=== PATIENT | female | born 1930 | race Caucasian/White ===

== ENCOUNTER 2018-08-03 00:09 | Inpatient (IN) | payer MEDICARE, BC ==
[2018-08-03] MEDS ORDERED: Ondansetron INJ* 2 MG/ML VIAL IV ONE (00:26)
--- NOTE | 2018-08-03 00:33 | ED ---
Shortness of Breath - HPI Summary HPI Summary: This patient is a 87 year old female brought in by ambulance to [facility] accompanied by family with a chief complaint of SOB since 1800 today. Patient states that the SOB and difficulty breathing started at 1800 today, which was followed by abd discomfort and vomiting. The pain is rated 5/10 in severity. Symptoms aggravated by nothing. Symptoms alleviated by nothing. Patient denies any recent cough or congestion. Patient has a hx of uterine cancer, which has been untreated as patient declines surgery. EMS states that patient did not do well with exertion, barely being able to move from the couch. Patient expresses a desire not to be intubated. - History of Current Complaint Chief Complaint: EDShortnessOfBreath Hx Obtained From: Patient, EMS Onset/Duration: Sudden Onset, Still Present Current Severity: Moderate Dyspnea At: Exertion Aggrevating Factors: Nothing Alleviating Factors: Nothing Associated Signs & Symptoms: Negative - cough, congestion - Allergy/Home Medications Allergies/Adverse Reactions: Allergies Allergy/AdvReac Type Severity Reaction Status Date / Time Penicillins Allergy Intermediate Rash Verified 08/03/18 02:39 Sulfa (Sulfonamide Allergy Intermediate Hives Verified 08/03/18 02:39 Antibiotics) PMH/Surg Hx/FS Hx/Imm Hx Previously Healthy: No Endocrine/Hematology History: Reports: Hx Diabetes Cardiovascular History: Reports: Hx Hypertension - meds in use History: Denies: Hx Dialysis, Hx Renal Disease Opthamlomology History: Denies: Hx Legally Blind EENT History: Denies: Hx Deafness Infectious Disease History: Unable to Obtain/Confirm Infectious Disease History: Denies: Traveled Outside the [place] in Last 30 Days - Family History Known Family History: Negative: Cardiac Disease, Hypertension, Diabetes - Social History Lives: With Family Alcohol Use: None Hx Substance Use: No Substance Use Type: Reports: None Hx Tobacco Use: No Smoking Status (MU): Never Smoked Tobacco Review of Systems Positive: Fatigue. Negative: Fever Positive: Shortness Of Breath. Negative: Cough Positive: Abdominal Pain, Vomiting All Other Systems Reviewed And Are Negative: Yes Physical Exam - Summary Physical Exam Summary: Appearance: mild pallor Skin: cool, dry, reflects adequate perfusion Head/face: normal Eyes: EOMI, CINDY ENT: mucous membranes moist Neck: supple, non-tender Respiratory: minor crackles with good aeration, tachypnic Cardiovascular: tachycardic, but regular, pulses symmetrical Abdomen: mild distension, increased bowel sounds Bowel Sounds: present Musculoskeletal: normal, strength/ROM intact Neuro: normal, sensory motor intact, A&Ox3 Triage Information Reviewed: Yes Vital Signs On Initial Exam: Initial Vitals Temp Pulse Resp BP Pulse Ox 96.6 F 123 22 134/94 86 08/03/18 00:14 08/03/18 00:14 08/03/18 00:14 08/03/18 00:14 08/03/18 00:14 Vital Signs Reviewed: Yes Diagnostics - Vital Signs Vital Signs Temp Pulse Resp BP Pulse Ox 08/03/18 00:14 96.6 F 123 22 134/94 86 - Laboratory Result Diagrams: 08/03/18 00:57 08/03/18 00:57 Lab Statement: Any lab studies that have been ordered have been reviewed, and results considered in the medical decision making process. - Radiology CXR Radiology Interpretation Completed By: ED Physician Summary of Radiographic Findings: CXR reveals [place] sign. ED physician has reviewed this radiology report. - CT CT Chest/Abd/Pel CT Interpretation Completed By: Radiologist Summary of CT Findings: CT Chest/Abd/Pel reveals IMPRESSION: 1. Large volume pulmonary emboli burden with associated right heart strain. 2. Posterior right lower lobe pulmonary nodule consistent with scarring from prior infectious process. IMPRESSION: 1. No CT findings to correlate with patient's symptomatology. Specifically no bowel obstruction. 2. 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 ACR White Paper guidelines (Miriam, et al. JACR 2010; 7(10):754-81) suggest follow-up pancreas imaging every 2 years. 3. Stable small renal lesions likely simple cysts. No followup indicated. 4. Distended endometrial canal unusual in a postmenopausal patient. Consider. followup with pelvic ultrasound. ED physician has reviewed this radiology report. - EKG 0028 Cardiac Rate: Tachycardia EKG Rhythm: Sinus Tachycardia - 120 Summary of EKG Findings: An EKG, taken 27, reveals Sinus Tachycardia (120 BPM) , normal axis, normal interval, nonspecific ST. baseline artefact Course/Dx - Course Assessment/Plan: Patient presents critically ill with history of uterine cancer and abrupt onset of severe shortness of breath. Her lungs are clear on entry to the ER and O2 sats are 90 despite 15 L nonrebreather mask. She has diffuse edema and concern is for pulmonary emboli. Initial chest x-ray is believed to have Wes[place] sign. A CT pulmonary embolism protocol was obtained and confirmed saddle emboli with large clot burden on the right. CT the abdomen given her discomfort there was negative. The patient is DO NOT INTUBATE and so she was treated with 40 L of high velocity nasal insufflation by Vapotherm. She tolerated this very well and O2 sats have been around 94%. Her work of breathing is much better. She and her family were consented for TPA given right heart strain. She has consented for this and 100 mg IV drip over 2 hours was initiated. She was given some morphine after this for comfort. She signed out MOLST form indicating limited interventions but DNR/DNI. Hospitalist service was contacted and will take the patient emergently to the ICU. Additionally, she is a diabetic and has grossly elevated blood sugars approximately 700. She was started on insulin drip after a insulin bolus here. - Diagnoses Differential Diagnosis/HQI/PQRI: Positive: CHF, Pneumonia, Pneumothorax, Pulmonary Embolism, Pulmonary Edema, Other - CT Provider Diagnoses: Pulmonary embolism, Acute respiratory failure with hypoxia, DKA (diabetic ketoacidoses) - Physician Notifications Discussed Care of Patient With: Basilia Flores - Hospitalist Time Discussed With Above Provider: 02:02 - We discussed patient care with Dr. Flores (Hospitalist) at 0202 and they agreed to admit the patient. - Critical Care Time Critical Care Time: 75-104 min - Critical care time is exclusive of separately billable procedures Discharge - Sign-Out/Discharge Documenting (check all that apply): Patient Departure - Discharge Plan Condition: Critical Disposition: ADMITTED TO [facility] - Billing Disposition and Condition Condition: CRITICAL Disposition: Admitted to [facility] - Attestation Statements Document Initiated by Annieibe: Yes Documenting Scribe: Roma Bazzi Provider For Whom Scribe is Documenting (Include Credential): Shade Gu MD Scribe Attestation: Roma Aaron, scribed for Shade Gu MD on 08/03/18 at 0310. Scribe Documentation Reviewed: Yes Provider Attestation: The documentation as recorded by the Roma rojas accurately reflects the service I personally performed and the decisions made by Shade felix MD
[2018-08-03] MEDS ORDERED: NS 0.9% 1000 ML* 1,000 ML IV ONE (00:35)
[2018-08-03] MEDS ORDERED: Insulin IVPB 100 units/100 ml 100 UNITS/100 ML UNIT IVPB ONE ×2 (00:35→03:24)
[2018-08-03] MEDS ORDERED: Iodixanol* (CONTRAST) 320 MG/ML 100 ML SDV IV ONE (00:40)
[2018-08-03] MEDS ORDERED: Insulin REGULAR(*) 1 UNITS UNIT IV PUSH ONE (00:55)
[2018-08-03 01:04] LABS: Hematocrit 39 % (35-47); Hemoglobin 12.2 g/dl (12.0-16.0); Mean Corpuscular HGB Conc 31 g/dl (31-36); Mean Corpuscular Hemoglobin 28 pg (27-31); Mean Corpuscular Volume 91 fL (80-97); Mean Platelet Volume 7.4 fL (7.4-10.4); Platelet Count 316 10^3/ul (150-450); Red Blood Count 4.32 10^6/ul (4.00-5.40); Red Cell Distribution Width 15 % (10.5-15)
[2018-08-03] MEDS ORDERED: Alteplase* 100 MG VIAL IVPB ONE (01:20)
[2018-08-03 01:21] LABS: EGFR Non-African American 26.1 (>60)
[2018-08-03 01:26] LABS: INR 1.02 (0.77-1.02)
[2018-08-03] MEDS ORDERED: oxyCODONE/Acetamin 5/325 MG* TAB PO PRN (01:58)
[2018-08-03 02:05] LABS: ABS Basophils 0.1 10^3/ul (0-0.2); ABS Eosinophils 0 10^3/ul (0-0.6); ABS Lymphocytes 1.2 10^3/ul (1.0-4.8); ABS Monocytes 0.5 10^3/ul (0-0.8); ABS Neutrophils 16.1 10^3/ul (1.5-7.7); ABS Nucleated RBC 0 10^3/ul; Eosinophil % 0.1 % (0-6); Lymphocyte % 6.9 % (25-47); Nucleated Red Blood Cells % 0.1
--- NOTE | 2018-08-03 02:17 | ADMNOTE ---
Subjective Date of Service: 08/02/18 Interval History: code status dnr dnr this is admission h/p info got from er and son ---> pt and son are both not good historians hpi this is a 87 yr old wf with hx of ovarian ca dxd 2-4 yrs ago with no chemo for at least 1 yr bed bound for at least for few months was brought in after she developed sudden onset of sob around 6 pm. pt was found to be profound hypoxia with sat in the 70s along with tachycardia and tachypenic. pt was found to have massive pe with a right heart strain got tpa from er ---> pt is aao times three and verbalizd her wish reg limit resuscitation status and molst was filled out by er . she has type ii dm and has been insulin dep presented with f/s >700 but ag is only 17 intial wbc is 17 later spike to >38 ---> blood cx done and started with zosyn -- -> ua ordered from er but STILL pending after few hours phx ovarian ca hx dxd 2-4 yrs ago type ii dm bed bound pshx denied social hx no cig occ etoh bedbound for few months at least lives with 1/2 son fhx denied when asked Review of Systems - Measurements Intake and Output: Intake and Output Last 24 Hours 07/31/18 08/01/18 08/02/18 08/03/18 06:59 06:59 06:59 06:59 Weight 190 lb - Review of Systems General Comments: pertinent as per hpi Objective Active Medications: Amlodipine Besylate (Norvasc Tab*) 5 mg PO DAILY [facility] Glipizide (Glucotrol Tab*) 2.5 mg PO DAILY [facility] Insulin Human Regular (Insulin Regular Ivpb) 100 units in 100 mls @ 8.618 mls/ hr IVPB PER RATE ONE Stop: 08/03/18 12:11 Lisinopril (Prinivil Tab*) 5 mg PO DAILY [facility] Metoprolol Succinate (Toprol Xl Tab*) 100 mg PO DAILY [facility] Non-Formulary Medication (Aspirin [Aspirin Low Dose]) 81 mg PO DAILY [facility] Non-Formulary Medication (Esomeprazole Magnesium [Nexium]) 40 mg PO DAILY [facility] Oxycodone HCl (Oxycontin(*)) 10 mg PO BID [facility] Oxycodone/Acetaminophen (Percocet 5/325 Tab*) 1 tab PO Q4H PRN PRN Reason: PAIN Vital Signs - 8 hr 08/03/18 08/03/18 08/03/18 00:14 00:17 00:19 Temperature 96.6 F Pulse Rate 123 124 122 Respiratory 22 Rate Blood Pressure 134/94 134/94 (mmHg) O2 Sat by Pulse 86 88 87 Oximetry 08/03/18 08/03/18 08/03/18 01:19 01:25 01:40 Temperature Pulse Rate 122 121 125 Respiratory 28 30 29 Rate Blood Pressure 147/81 152/87 (mmHg) O2 Sat by Pulse 92 93 91 Oximetry 08/03/18 08/03/18 08/03/18 01:54 02:00 02:05 Temperature Pulse Rate 122 120 121 Respiratory 30 34 36 Rate Blood Pressure 143/115 136/73 (mmHg) O2 Sat by Pulse 93 91 91 Oximetry Oxygen Devices in Use Now: None, High Flow Heated Nasal Cannula Appearance: nad Eyes: No Scleral Icterus, PERRLA Ears/Nose/Mouth/Throat: NL Teeth, Lips, Gums, - - oral mucosa dry Neck: NL Appearance and Movements; NL JVP, Trachea Midline, No Thyroid Enlargement, Masses Respiratory: - - tachypenia decreased b/s b/l Cardiovascular: NL Sounds; No Murmurs; No JVD, RRR, - - tachycardia Abdominal: NL Sounds; No Tenderness; No Distention Extremities: - - + 3 pedal edema able to raise b/l le against gravity but lle is only 10 degree Skin: No Rash or Ulcers Neurological: Alert and Oriented x 3, - - cranial n 2-12 grossly intact able to raise ue and le against gravity plantar reflex downwards Result Diagrams: 08/03/18 05:55 08/03/18 05:55 EKG Data: ns with r heart strain pattern Assess/Plan/Problems-Billing Assessment: this is a 87 yr old wf with hx of ovarian ca bed bound presented to er with sudden onset of sob tachycardia tachypenia hypoxia pt has massive pe got tpa from er - Patient Problems (1) Hypoxia Current Visit: Yes Status: Acute Code(s): R09.02 - HYPOXEMIA SNOMED Code(s ): 310415633 Comment: profound hypoxia prob related to massive pe got tpa currently on heparin drip ck ptt in 6 hs oxygen support will order prn zopenx due to tachycardia (2) Pulmonary embolism and infarction Current Visit: Yes Status: Acute Code(s): I26.99 - OTHER PULMONARY EMBOLISM WITHOUT ACUTE COR PULMONALE SNOMED Code(s): 0796532688037 Comment: s/p tpa and currently on heparin drip (3) Ovarian ca Current Visit: Yes Status: Acute Comment: no tx at least 2-4 yrs will ck ca 125 with am lab (4) Sepsis Current Visit: Yes Status: Acute Comment: blood culture times two zosyn started moniter cbc and lactic acid trend WILL NEED TO SEND UA ---> ORDERED BUT NEVER SENT FROM ER (5) DNR (do not resuscitate) Current Visit: Yes Status: Acute (6) Hyperosmolarity due to secondary diabetes Current Visit: Yes Status: Acute Code(s): E13.00 - OTH DIAB W HYPROSM W/O NONKET HYPRGLY-HYPROS COMA (NKHHC) SNOMED Code(s): 9785645 Comment: on insulin drip f/s q 2 hrs bmp q 4 hrs until close the gap (7) Increased anion gap metabolic acidosis Current Visit: Yes Status: Acute Code(s): E87.2 - ACIDOSIS SNOMED Code(s) : 55031255 Comment: this is prob due to type ii dm and high sugar ivf f/s ck q2 hrs until gap closes (8) Tachycardia Current Visit: Yes Status: Acute Code(s): R00.0 - TACHYCARDIA, UNSPECIFIED SNOMED Code(s): 5135457 Comment: tele with daniel arredondo
[2018-08-03] MEDS ORDERED: Morphine VIAL* 4 MG/ML VIAL (1 ml vial) IV ONE (02:20)
[2018-08-03] MEDS ORDERED: Morphine VIAL* 4 MG/ML VIAL (1 ml vial) ONE (02:22)
[2018-08-03] MEDS ORDERED: Heparin DRIP 25,000 UNITS(*) 25,000 UNITS/500 ML BAG IV SCH ×2 (03:30→04:00)
[2018-08-03 04:10] LABS: ABS Basophils 0.1 10^3/ul (0-0.2); ABS Eosinophils 0 10^3/ul (0-0.6); ABS Lymphocytes 0.8 10^3/ul (1.0-4.8); ABS Neutrophils 15.9 10^3/ul (1.5-7.7); ABS Nucleated RBC 0 10^3/ul; Eosinophil % 0 % (0-6); Hematocrit 37 % (35-47); Hemoglobin 12.1 g/dl (12.0-16.0); Lymphocyte % 4.7 % (25-47); Mean Corpuscular HGB Conc 33 g/dl (31-36); Mean Corpuscular Hemoglobin 29 pg (27-31); Mean Corpuscular Volume 88 fL (80-97); Nucleated Red Blood Cells % 0; Platelet Count 246 10^3/ul (150-450); Red Cell Distribution Width 14 % (10.5-15); White Blood Count 17.8 10^3/ul (3.5-10.8)
[2018-08-03 04:19] LABS: EGFR Non-African American 25.9 (>60)
[2018-08-03] MEDS ORDERED: ZOSYN 3.375 GM x ONE DOSE over 30 miuntes IVPB ×2 (06:00)
[2018-08-03] MEDS ORDERED: [UNRECOGNIZED DRUG - OTHER] IVPB SCH (06:00)
[2018-08-03 06:14] LABS: ABS Basophils 0 10^3/ul (0-0.2); ABS Eosinophils 0 10^3/ul (0-0.6); ABS Monocytes 0.6 10^3/ul (0-0.8); ABS Neutrophils 12.8 10^3/ul (1.5-7.7); ABS Nucleated RBC 0 10^3/ul; Eosinophil % 0 % (0-6); Hematocrit 37 % (35-47); Hemoglobin 12.2 g/dl (12.0-16.0); Lymphocyte % 6.9 % (25-47); Mean Corpuscular HGB Conc 33 g/dl (31-36); Mean Corpuscular Hemoglobin 29 pg (27-31); Mean Corpuscular Volume 87 fL (80-97); Mean Platelet Volume 7.2 fL (7.4-10.4); Nucleated Red Blood Cells % 0; Platelet Count 226 10^3/ul (150-450); Red Blood Count 4.28 10^6/ul (4.00-5.40); Red Cell Distribution Width 14 % (10.5-15); White Blood Count 14.4 10^3/ul (3.5-10.8)
[2018-08-03] MEDS: Acetaminophen TAB* 325 MG PO PRN ×2 (06:22→09:55)
[2018-08-03 06:32] LABS: EGFR Non-African American 27.8 (>60)
[2018-08-03] MEDS ORDERED: glipiZIDE TAB* 5 MG PO SCH (09:00)
[2018-08-03] MEDS: amLODIPine TAB* 5 MG PO SCH (09:55)
[2018-08-03] MEDS: Omeprazole CAP* 20 MG PO SCH (09:55)
[2018-08-03] MEDS: Metoprolol Succinate XL TAB* 100 MG PO SCH (09:55)
[2018-08-03] MEDS: Lisinopril TAB* 5 MG PO SCH (09:55)
[2018-08-03] MEDS: oxyCODONE SR TAB(*) 10 MG TAB.SR PO SCH ×3 (10:12→20:43)
[2018-08-03] MEDS ORDERED: Piperacillin/Tazobac ADVAN(*) 3.375 GM in NS 0.9% 100 ML* 100 ML IVPB SCH (10:30)
[2018-08-03 11:19] LABS: EGFR Non-African American 29.4 (>60)
[2018-08-03] MEDS: Insulin LISPRO* 1 UNITS UNIT SUBCUT SCH ×3 (12:10→20:43)
[2018-08-03] MEDS: Heparin VIAL(*) 5000 UNITS/ML VIAL (FIVE THOUSAND) IV SCH (13:58)
[2018-08-03 15:43] LABS: Urine Appearance Cloudy; Urine Blood 3+ (Negative); Urine Color Yellow; Urine Ketones Trace (Negative); Urine Protein 1+(30 mg/dL) (Negative); Urine Red Blood Cell 3+(>10/hpf) (Absent); Urine Specific Gravity 1.038 (1.010-1.030); Urine Urobilinogen Negative (Negative); Urine White Blood Cell 1+(6-10/hpf) (Absent)
--- NOTE | 2018-08-03 18:23 | PN ---
Progress Note - Progress Note Date of Service: 08/03/18 Note: Patient admitted earlier today with saddle PE and right heart strain. Received TPA and now on heparin drip - no bleeding complications today, and patient remains hemodynamically stable.
[2018-08-04] MEDS: Heparin VIAL(*) 5000 UNITS/ML VIAL (FIVE THOUSAND) IV SCH (02:29)
[2018-08-04 06:25] LABS: ABS Basophils 0.1 10^3/ul (0-0.2); ABS Eosinophils 0.1 10^3/ul (0-0.6); ABS Lymphocytes 1.4 10^3/ul (1.0-4.8); ABS Monocytes 0.9 10^3/ul (0-0.8); ABS Neutrophils 10.9 10^3/ul (1.5-7.7); ABS Nucleated RBC 0 10^3/ul; Eosinophil % 0.5 % (0-6); Hematocrit 32 % (35-47); Hemoglobin 10.5 g/dl (12.0-16.0); Lymphocyte % 10.3 % (25-47); Mean Corpuscular HGB Conc 33 g/dl (31-36); Mean Corpuscular Hemoglobin 29 pg (27-31); Mean Corpuscular Volume 87 fL (80-97); Mean Platelet Volume 7.9 fL (7.4-10.4); Nucleated Red Blood Cells % 0; Platelet Count 184 10^3/ul (150-450); Red Blood Count 3.64 10^6/ul (4.00-5.40); Red Cell Distribution Width 15 % (10.5-15); White Blood Count 13.3 10^3/ul (3.5-10.8)
[2018-08-04 06:46] LABS: EGFR Non-African American 25.3 (>60)
[2018-08-04] MEDS: oxyCODONE SR TAB(*) 10 MG TAB.SR PO SCH (08:52)
[2018-08-04] MEDS: Omeprazole CAP* 20 MG PO SCH (08:53)
[2018-08-04] MEDS: amLODIPine TAB* 5 MG PO SCH (08:53)
[2018-08-04] MEDS: Insulin LISPRO* 1 UNITS UNIT SUBCUT SCH ×4 (08:53→20:32)
[2018-08-04] MEDS: Metoprolol Succinate XL TAB* 100 MG PO SCH (08:53)
[2018-08-04] MEDS: Lisinopril TAB* 5 MG PO SCH (08:53)
[2018-08-04] MEDS ORDERED: Aspirin EC TAB* 81 MG TAB.EC PO SCH (09:00)
--- NOTE | 2018-08-04 10:30 | PN ---
Date of Service: 08/04/18 Critical Care Services: Patient continues to do well. No evidence of abnormal bleeding and no complaints of SOB. Continues on heparin infusion. Vital Signs: Temp Pulse Resp BP SpO2 FiO2 99.3 F 79 20 136/69 98 75 Physical Exam: Gen:Alert, oriented, breathing comfortably Lungs:Clear Extremities: 1+ edema. No cyanosis Fluid Balance (Past 24 Hours): 08/03/18 08/04/18 06:59 06:59 Intake Total 416 1407.6 Output Total 705 643 Balance -289 764.6 Weight 201 lb 209 lb Intake: Medicated IV 16 307.6 CC - Insulin 16 46.1 Heparin 261.5 Oral 400 1100 Output: [place] 705 643 Labs: Laboratory Results - last 24 hr 08/03/18 08/03/18 08/03/18 10:01 10:01 11:09 WBC RBC Hgb Hct MCV MCH MCHC RDW Plt Count MPV Neut % (Auto) Lymph % (Auto) Todd % (Auto) Eos % (Auto) Baso % (Auto) Absolute Neuts (auto) Absolute Lymphs (auto) Absolute Monos (auto) Absolute Eos (auto) Absolute Basos (auto) Absolute Nucleated RBC Nucleated RBC % APTT Sodium 138 Potassium 3.8 Chloride 106 Carbon Dioxide 21 L Anion Gap 11 BUN 34 H Creatinine 1.66 H Est GFR ( Amer) 35.5 Est GFR (Non-Af Amer) 29.4 BUN/Creatinine Ratio 20.5 H Glucose 73 POC Glucose (mg/dL) 64 L Lactic Acid 2.4 H* Calcium 8.7 Magnesium Troponin I 1.07 H* Urine Color Urine Appearance Urine pH Ur Specific Alden Urine Protein Urine Ketones Urine Blood Urine Nitrate Urine Bilirubin Urine Urobilinogen Ur Leukocyte Esterase Urine WBC (Auto) Urine RBC (Auto) Urine Bacteria Hyaline Casts Urine Glucose 08/03/18 08/03/18 08/03/18 11:22 12:03 12:39 WBC RBC Hgb Hct MCV MCH MCHC RDW Plt Count MPV Neut % (Auto) Lymph % (Auto) Todd % (Auto) Eos % (Auto) Baso % (Auto) Absolute Neuts (auto) Absolute Lymphs (auto) Absolute Monos (auto) Absolute Eos (auto) Absolute Basos (auto) Absolute Nucleated RBC Nucleated RBC % APTT 35.5 Sodium Potassium Chloride Carbon Dioxide Anion Gap BUN Creatinine Est GFR ( Amer) Est GFR (Non-Af Amer) BUN/Creatinine Ratio Glucose 57 L POC Glucose (mg/dL) 141 H Lactic Acid Calcium Magnesium Troponin I Urine Color Urine Appearance Urine pH Ur Specific Alden Urine Protein Urine Ketones Urine Blood Urine Nitrate Urine Bilirubin Urine Urobilinogen Ur Leukocyte Esterase Urine WBC (Auto) Urine RBC (Auto) Urine Bacteria Hyaline Casts Urine Glucose 08/03/18 08/03/18 08/03/18 15:34 16:26 20:00 WBC RBC Hgb Hct MCV MCH MCHC RDW Plt Count MPV Neut % (Auto) Lymph % (Auto) Todd % (Auto) Eos % (Auto) Baso % (Auto) Absolute Neuts (auto) Absolute Lymphs (auto) Absolute Monos (auto) Absolute Eos (auto) Absolute Basos (auto) Absolute Nucleated RBC Nucleated RBC % APTT 42.8 H Sodium Potassium Chloride Carbon Dioxide Anion Gap BUN Creatinine Est GFR ( Amer) Est GFR (Non-Af Amer) BUN/Creatinine Ratio Glucose POC Glucose (mg/dL) 246 H Lactic Acid Calcium Magnesium Troponin I Urine Color Yellow Urine Appearance Cloudy Urine pH 5.0 Ur Specific Alden 1.038 H Urine Protein 1+(30 mg/dl) A Urine Ketones Trace A Urine Blood 3+ A Urine Nitrate Negative Urine Bilirubin Negative Urine Urobilinogen Negative Ur Leukocyte Esterase Trace A Urine WBC (Auto) 1+(6-10/hpf) A Urine RBC (Auto) 3+(>10/hpf) A Urine Bacteria Absent Hyaline Casts Present A Urine Glucose 3+(>=500 mg/dl) A 08/03/18 08/03/18 08/04/18 20:37 22:28 01:55 WBC RBC Hgb Hct MCV MCH MCHC RDW Plt Count MPV Neut % (Auto) Lymph % (Auto) Todd % (Auto) Eos % (Auto) Baso % (Auto) Absolute Neuts (auto) Absolute Lymphs (auto) Absolute Monos (auto) Absolute Eos (auto) Absolute Basos (auto) Absolute Nucleated RBC Nucleated RBC % APTT 31.9 Sodium Potassium Chloride Carbon Dioxide Anion Gap BUN Creatinine Est GFR ( Amer) Est GFR (Non-Af Amer) BUN/Creatinine Ratio Glucose POC Glucose (mg/dL) 243 H Lactic Acid Calcium Magnesium Troponin I 0.48 H* Urine Color Urine Appearance Urine pH Ur Specific Alden Urine Protein Urine Ketones Urine Blood Urine Nitrate Urine Bilirubin Urine Urobilinogen Ur Leukocyte Esterase Urine WBC (Auto) Urine RBC (Auto) Urine Bacteria Hyaline Casts Urine Glucose 08/04/18 08/04/18 08/04/18 06:10 06:10 08:00 WBC 13.3 H RBC 3.64 L Hgb 10.5 L Hct 32 L MCV 87 MCH 29 MCHC 33 RDW 15 Plt Count 184 MPV 7.9 Neut % (Auto) 82.0 Lymph % (Auto) 10.3 L Todd % (Auto) 6.4 Eos % (Auto) 0.5 Baso % (Auto) 0.8 Absolute Neuts (auto) 10.9 H Absolute Lymphs (auto) 1.4 Absolute Monos (auto) 0.9 H Absolute Eos (auto) 0.1 Absolute Basos (auto) 0.1 Absolute Nucleated RBC 0 Nucleated RBC % 0 APTT 32.0 Sodium 133 L Potassium 4.6 Chloride 101 Carbon Dioxide 21 L Anion Gap 11 BUN 42 H Creatinine 1.89 H Est GFR ( Amer) 30.6 Est GFR (Non-Af Amer) 25.3 BUN/Creatinine Ratio 22.2 H Glucose 314 H POC Glucose (mg/dL) Lactic Acid Calcium 8.2 L Magnesium 1.6 L Troponin I Urine Color Urine Appearance Urine pH Ur Specific Alden Urine Protein Urine Ketones Urine Blood Urine Nitrate Urine Bilirubin Urine Urobilinogen Ur Leukocyte Esterase Urine WBC (Auto) Urine RBC (Auto) Urine Bacteria Hyaline Casts Urine Glucose 08/04/18 08:40 WBC RBC Hgb Hct MCV MCH MCHC RDW Plt Count MPV Neut % (Auto) Lymph % (Auto) Todd % (Auto) Eos % (Auto) Baso % (Auto) Absolute Neuts (auto) Absolute Lymphs (auto) Absolute Monos (auto) Absolute Eos (auto) Absolute Basos (auto) Absolute Nucleated RBC Nucleated RBC % APTT Sodium Potassium Chloride Carbon Dioxide Anion Gap BUN Creatinine Est GFR ( Amer) Est GFR (Non-Af Amer) BUN/Creatinine Ratio Glucose POC Glucose (mg/dL) 290 H Lactic Acid Calcium Magnesium Troponin I Urine Color Urine Appearance Urine pH Ur Specific Ald[place] Urine Protein Urine Ketones Urine Blood Urine Nitrate Urine Bilirubin Urine Urobilinogen Ur Leukocyte Esterase Urine WBC (Auto) Urine RBC (Auto) Urine Bacteria Hyaline Casts Urine Glucose Studies: Urine culture growing > 100,000 colonies of a gram-negative bacillus. Nutrition: Consistent carb diet Impression: 1. Clinical improvement after lytic therapy. 2. Hyperglycemia is apparently a new problem (no prior Hx diabetes) 3. ? Significance of urine culture Plan: 1. D/C heparin infusion and start oral anticoagulation (will use Eliquis - 10 mg PO BID x 7 days, then 5 mg PO BI(D) 2. Will start metformin at 500 mg BID for hyperglycemia (patient already on sliding-scale insulin) 3. Get ultrasound of legs to define residual clot burden. 4. Repeat TTE to get another look at the right heart. 5. Repeat urine culture. 6. Transfer out of ICU
[2018-08-04] MEDS: Apixaban* 5 MG TAB PO SCH ×2 (11:51→20:31)
[2018-08-04] MEDS: metFORMIN* 500 MG TAB PO SCH ×2 (11:51→17:30)
[2018-08-04] MEDS: Acetaminophen TAB* 325 MG PO PRN (17:44)
[2018-08-05 06:23] LABS: ABS Basophils 0.1 10^3/ul (0-0.2); ABS Eosinophils 0.3 10^3/ul (0-0.6); ABS Lymphocytes 1.6 10^3/ul (1.0-4.8); ABS Monocytes 0.6 10^3/ul (0-0.8); ABS Neutrophils 8.1 10^3/ul (1.5-7.7); ABS Nucleated RBC 0 10^3/ul; Eosinophil % 2.8 % (0-6); Hematocrit 32 % (35-47); Hemoglobin 10.6 g/dl (12.0-16.0); Lymphocyte % 15.3 % (25-47); Mean Corpuscular HGB Conc 34 g/dl (31-36); Mean Corpuscular Hemoglobin 29 pg (27-31); Mean Corpuscular Volume 87 fL (80-97); Mean Platelet Volume 7.5 fL (7.4-10.4); Nucleated Red Blood Cells % 0; Platelet Count 227 10^3/ul (150-450); Red Blood Count 3.61 10^6/ul (4.00-5.40); Red Cell Distribution Width 14 % (10.5-15); White Blood Count 10.8 10^3/ul (3.5-10.8)
[2018-08-05 06:43] LABS: EGFR Non-African American 25.4 (>60)
[2018-08-05] MEDS: Metoprolol Succinate XL TAB* 100 MG PO SCH (08:27)
[2018-08-05] MEDS: Lisinopril TAB* 5 MG PO SCH (08:28)
[2018-08-05] MEDS: amLODIPine TAB* 5 MG PO SCH (08:28)
[2018-08-05] MEDS: Omeprazole CAP* 20 MG PO SCH (08:28)
[2018-08-05] MEDS: Apixaban* 5 MG TAB PO SCH ×2 (08:28→21:02)
[2018-08-05] MEDS: metFORMIN* 500 MG TAB PO SCH ×2 (08:29→17:05)
[2018-08-05] MEDS: Insulin LISPRO* 1 UNITS UNIT SUBCUT SCH ×4 (08:46→21:04)
--- NOTE | 2018-08-05 13:24 | PN ---
Subjective Date of Service: 08/05/18 Interval History: On 5L currently denies dysuria, repeat Ucx negative. Hx of pcn and sulfa allergies. Duplex showing occlusive left, nonocclusive right DVT Complaint of 5 weeks increased r>L leg swelling She had followed with Dr. Stanton [facility] - decided against ovarian removal for her cancer. States she not strictly bed bound but does require a walker. Objective Active Medications: Acetaminophen (Tylenol Tab*) 650 mg PO Q4H PRN PRN Reason: FEVER/PAIN Last Admin: 08/04/18 17:44 Dose: 650 mg Amlodipine Besylate (Norvasc Tab*) 5 mg PO DAILY [facility] Last Admin: 08/05/18 08:28 Dose: 5 mg Apixaban (Eliquis*) 10 mg PO BID [facility] Stop: 08/10/18 10:00 Last Admin: 08/05/18 08:28 Dose: 10 mg Heparin Sodium (Porcine) (Heparin Vial(*)) 0 units IV .PER PROTOCOL [facility] Last Admin: 08/04/18 02:29 Dose: 3,000 units Insulin Human Lispro (Humalog*) 0 units SUBCUT [facility]; Protocol Last Admin: 08/05/18 13:08 Dose: 3 units Lisinopril (Prinivil Tab*) 5 mg PO DAILY [facility] Last Admin: 08/05/18 08:28 Dose: 5 mg Metformin HCl (Glucophage*) 500 mg PO 0800,1700 [facility] Last Admin: 08/05/18 08:29 Dose: 500 mg Metoprolol Succinate (Toprol Xl Tab*) 100 mg PO DAILY [facility] Last Admin: 08/05/18 08:27 Dose: 100 mg Omeprazole (Prilosec Cap*) 20 mg PO DAILY [facility] Last Admin: 08/05/18 08:28 Dose: 20 mg Vital Signs - 8 hr 08/05/18 08/05/18 07:45 07:59 Temperature 98.3 F Pulse Rate 88 Respiratory 18 Rate Blood Pressure 149/70 (mmHg) O2 Sat by Pulse 100 96 Oximetry Oxygen Devices in Use Now: Nasal Cannula, High Flow Nasal Cannula Appearance: NAD Eyes: No Scleral Icterus, PERRLA Neck: NL Appearance and Movements; NL JVP, Trachea Midline Respiratory: Symmetrical Chest Expansion and Respiratory Effort, Clear to Auscultation Cardiovascular: NL Sounds; No Murmurs; No JVD, RRR Abdominal: NL Sounds; No Tenderness; No Distention, No Hepatosplenomegaly Extremities: - - R(2+)>L(1+) pedal edema Skin: No Rash or Ulcers Neurological: Alert and Oriented x 3, NL Sensation, NL Muscle Strength and Tone Nutrition: Taking PO's Result Diagrams: 08/05/18 06:02 08/05/18 05:56 Additional Lab and Data: Laboratory Results - last 24 hr 08/04/18 08/05/18 08/05/18 20:15 05:56 06:02 WBC 10.8 RBC 3.61 L Hgb 10.6 L Hct 32 L MCV 87 MCH 29 MCHC 34 RDW 14 Plt Count 227 MPV 7.5 Neut % (Auto) 75.3 Lymph % (Auto) 15.3 L [place] % (Auto) 5.5 Eos % (Auto) 2.8 Baso % (Auto) 1.1 Absolute Neuts (auto) 8.1 H Absolute Lymphs (auto) 1.6 Absolute Monos (auto) 0.6 Absolute Eos (auto) 0.3 Absolute Basos (auto) 0.1 Absolute Nucleated RBC 0 Nucleated RBC % 0 Sodium 133 L Potassium 4.1 Chloride 102 Carbon Dioxide 20 L Anion Gap 11 BUN 50 H Creatinine 1.88 H Est GFR ( Amer) 30.8 Est GFR (Non-Af Amer) 25.4 BUN/Creatinine Ratio 26.6 H Glucose 244 H POC Glucose (mg/dL) 250 H Calcium 8.2 L 08/05/18 08/05/18 08/05/18 07:19 11:32 17:07 WBC RBC Hgb Hct MCV MCH MCHC RDW Plt Count MPV Neut % (Auto) Lymph % (Auto) [place] % (Auto) Eos % (Auto) Baso % (Auto) Absolute Neuts (auto) Absolute Lymphs (auto) Absolute Monos (auto) Absolute Eos (auto) Absolute Basos (auto) Absolute Nucleated RBC Nucleated RBC % Sodium Potassium Chloride Carbon Dioxide Anion Gap BUN Creatinine Est GFR ( Amer) Est GFR (Non-Af Amer) BUN/Creatinine Ratio Glucose POC Glucose (mg/dL) 241 H 255 H 236 H Calcium Microbiology and Other Data: Microbiology 08/04/18 13:00 Urine Urine Culture - Final No Growth (<1,000 CFU/mL) 08/03/18 15:34 Urine Urine Culture - Final Escherichia Coli 08/03/18 05:55 Blood Venous Aerobic Blood Culture - Preliminary No Growth Day 2 08/03/18 05:55 Blood Venous Anaerobic Blood Culture - Preliminary No Growth Day 2 08/03/18 00:57 Blood Venous Aerobic Blood Culture - Preliminary No Growth Day 2 08/03/18 03:30 Nasal Nasal Screen MRSA (PCR) - Final Mrsa Not Detected EKG Data: ns with r heart strain pattern Assess/Plan/Problems-Billing Assessment: 87 yo female PMH ovarian ca (refused recommended surgery 1 year ago), largely immobile between walker and bed, presented to er with sudden onset of sob tachycardia tachypenia hypoxia. Massive PE s/p TPA and heparin gtt. Now Eliquis. - Patient Problems (1) Pulmonary embolism and infarction Current Visit: Yes Status: Acute Code(s): I26.99 - OTHER PULMONARY EMBOLISM WITHOUT ACUTE COR PULMONALE SNOMED Code(s): 8793353320892 Comment: s/p tpa and then heparin drip Currently Eliquis 10mg BID for total 7 days then 5mg BID. more clot burden in legs. Case could be made for lovenox given likely active ovarian cancer though patient was not wanting surgery for that and doubt would want BID shots vs pill. (2) Hypoxia Current Visit: Yes Status: Acute Code(s): R09.02 - HYPOXEMIA SNOMED Code(s ): 638243369 Comment: improving. wean from O2 or qualify for home oxygen. secondary to massive PE. (3) Ovarian ca Current Visit: Yes Status: Acute Comment: Pt states she was recommended to have surgery at [place] last year but refused. CA-125 of was 13.5 wnl (4) Sepsis Current Visit: Yes Status: Acute Comment: resolved, negative blood culture to date. s/p 1 dose zosyn, no current abx. lactic acidosis resolved. Repeat UCx no growth, initially culture with Ecoli >100K. Asymptomatic. (5) Tachycardia Current Visit: Yes Status: Acute Code(s): R00.0 - TACHYCARDIA, UNSPECIFIED SNOMED Code(s): 7655706 Comment: resolved. (6) DNR (do not resuscitate) Current Visit: Yes Status: Acute Status and Disposition: medicine inpatient. Likely d/c 11/26 (oxygen reqs?), also ECHO was reordered
[2018-08-06 06:54] LABS: ABS Basophils 0.1 10^3/ul (0-0.2); ABS Eosinophils 0.3 10^3/ul (0-0.6); ABS Lymphocytes 1.5 10^3/ul (1.0-4.8); ABS Monocytes 0.5 10^3/ul (0-0.8); ABS Neutrophils 5.4 10^3/ul (1.5-7.7); ABS Nucleated RBC 0 10^3/ul; Eosinophil % 3.4 % (0-6); Hematocrit 32 % (35-47); Hemoglobin 10.9 g/dl (12.0-16.0); Lymphocyte % 19.5 % (25-47); Mean Corpuscular HGB Conc 34 g/dl (31-36); Mean Corpuscular Hemoglobin 29 pg (27-31); Mean Corpuscular Volume 87 fL (80-97); Nucleated Red Blood Cells % 0; Platelet Count 258 10^3/ul (150-450); Red Blood Count 3.72 10^6/ul (4.00-5.40); Red Cell Distribution Width 14 % (10.5-15); White Blood Count 7.8 10^3/ul (3.5-10.8)
[2018-08-06] MEDS: amLODIPine TAB* 5 MG PO SCH (08:49)
[2018-08-06] MEDS: Lisinopril TAB* 5 MG PO SCH (08:49)
[2018-08-06] MEDS: metFORMIN* 500 MG TAB PO SCH (08:49)
[2018-08-06] MEDS: Insulin LISPRO* 1 UNITS UNIT SUBCUT SCH ×4 (08:49→21:10)
[2018-08-06] MEDS: Apixaban* 5 MG TAB PO SCH ×2 (08:49→21:09)
[2018-08-06] MEDS: Omeprazole CAP* 20 MG PO SCH (08:49)
[2018-08-06] MEDS: Metoprolol Succinate XL TAB* 100 MG PO SCH (08:49)
[2018-08-06 11:44] LABS: EGFR Non-African American 35.7 (>60)
--- NOTE | 2018-08-06 11:59 | ECHO ---
Patient: TERESA LLAMAS [facility] Rec#: [id number] : 1930 Date: 08/06/2018 Age: 87y Height: 157 cm / 61.8 in Weight: 95 kg / 209.4 lbs Sex: F BSA: 1.95 Room#: [facility] Admit Date#: 08/03/2018 Type: Inpatient Referring: Osito Coreas MD Reading: Arthur Mercado MD Race Board Attendant: Joaquina Mccarthy RDCS CC: Bertha Mccracken MD Transthoracic Echocardiogram Indication: Pulmonary Embolism BP: 120/52 HR: 81 Rhythm: NSR Findings History: HTN, DM. Technical Comments: The study quality is fair. Completed at 0910. Left Ventricle: The left ventricular chamber size is normal. There is no left ventricular hypertrophy. There is normal left ventricular systolic function. The estimated ejection fraction is 55-60%. Abnormal left ventricular diastolic function is observed. Abnormal left ventricular diastolic filling is observed, consistent with impaired relaxation. Left Atrium: The left atrium is mildly dilated. Right Ventricle: Moderator Band present. The right ventricle is moderately dilated. The right ventricular global systolic function is moderately reduced. Right Atrium: The right atrium is moderately dilated. Aortic Valve: The aortic valve is trileaflet. The aortic valve leaflets are mildly thickened. There is evidence of aortic sclerosis without stenosis. There is a trace of aortic regurgitation. There is no evidence of aortic stenosis. Mitral Valve: There is mitral annular calcification. The mitral valve leaflets are mildly thickened. There is a trace of mitral regurgitation. There is no evidence of mitral stenosis. Tricuspid Valve: The tricuspid valve leaflets are normal. There is moderate tricuspid regurgitation. The right ventricular systolic pressure is estimated at 51 mmHg. There is evidence of moderate pulmonary hypertension. There is no tricuspid stenosis. Pulmonic Valve: The pulmonic valve appears normal. There is a trace pulmonic regurgitation. There is no pulmonic stenosis. Pericardium: There is no significant pericardial effusion. A pericardial fat pad is visualized. Aorta: There is no dilatation of the ascending aorta. There is no dilatation of the aortic arch. The aortic root is normal in size. Pulmonary Artery: The main pulmonary artery appears normal. Venous: The inferior vena cava is dilated. There is less than 50% respiratory change in the inferior vena cava dimension. Summary: There was not any prior study for comparison. Conclusions There is normal left ventricular systolic function. The estimated ejection fraction is 55-60%. Abnormal left ventricular diastolic filling is observed, consistent with impaired relaxation. There is evidence of aortic sclerosis without stenosis. There is a trace of aortic regurgitation. There is a trace of mitral regurgitation. There is moderate tricuspid regurgitation. The right ventricular systolic pressure is estimated at 51 mmHg. There is evidence of moderate pulmonary hypertension. There is no significant pericardial effusion. Measurements Name Value Normal Range RVIDd (AP) 2D 3.3 cm (0.9 - 2.6) RVDdMajor (2D) 5.3 cm (2.2 - 4.4) RAd ISD 4CH 5.4 cm (3.4 - 4.9) RA (A4C)W 4.6 cm (2.9 - 4.6) IVSd (2D) 0.9 cm (0.6 - 1) LVPWd (2D) 0.9 cm (0.6 - 1) LVIDd (2D) 4.2 cm (3.6 - 5.4) LVIDs (2D) 2.6 cm - LV FS (2D) 38 % (25 - 45) Aortic Annulus 1.7 cm (1.4 - 2.6) Ao root diameter (2D) 3 cm (2.1 - 3.5) Ascending Ao 3.1 cm (2.1 - 3.4) Aortic arch 2.3 cm (1.8 - 3.4) LA dimension (AP) 2D 3.3 cm (2.3 - 3.8) LAd ISD 4CH 5.6 cm (2.9 - 5.3) Name Value Normal Range LA ESV BP (A/L) index 31 ml/m2 - Name Value Normal Range MV E-wave Vmax 0.6 m/sec - MV deceleration time 282 msec - MV A-wave Vmax 0.8 m/sec - MV E:A ratio 0.7 ratio - LV septal e' Vmax 0.07 m/sec - LV lateral e' Vmax 0.09 m/sec - LV E:e' septal ratio 8.57 ratio - LV E:e' lateral ratio 6.67 ratio - Name Value Normal Range AV Vmax 1.7 m/sec - AV VTI 32.5 cm - AV peak gradient 12 mmHg - AV mean gradient 6 mmHg - LVOT Vmax 1.2 m/sec - LVOT VTI 24.4 cm - LVOT peak gradient 5 mmHg - LVOT mean gradient 3 mmHg - DELMIS Vmax 0.6 m/sec - Name Value Normal Range TR Vmax 3 m/sec - TR peak gradient 36 mmHg - RAP 15 mmHg - RVSP 51 mmHg - IVC diameter 2.13 cm - Name Value Normal Range PV Vmax 0.9 m/sec - PV peak gradient 3 mmHg -
--- NOTE | 2018-08-06 14:54 | PN ---
Subjective Date of Service: 08/06/18 Interval History: Patient observed ambulating to bathroom with sba and without o2 this morning. Per nurse o2 sat after ambulation was 91% on room air. Patient reports mild shortness of breath that increases with exertion. Also reports left leg pain. Denies cp, palpitations, n/v/d. Son at bedside this morning and expressed concern for patient's discharge home as he (who she lives with) is in the hospital in [place] awaiting hip and heart surgery. Son is interested in subacute rehab or hospice. Objective Active Medications: Acetaminophen (Tylenol Tab*) 650 mg PO Q4H PRN PRN Reason: FEVER/PAIN Last Admin: 08/04/18 17:44 Dose: 650 mg Amlodipine Besylate (Norvasc Tab*) 5 mg PO DAILY [facility] Last Admin: 08/06/18 08:49 Dose: 5 mg Apixaban (Eliquis*) 10 mg PO BID [facility] Stop: 08/10/18 10:00 Last Admin: 08/06/18 08:49 Dose: 10 mg Insulin Human Lispro (Humalog*) 0 units SUBCUT ACHS [facility]; Protocol Last Admin: 08/06/18 13:07 Dose: 4 units Lisinopril (Prinivil Tab*) 5 mg PO DAILY [facility] Last Admin: 08/06/18 08:49 Dose: 5 mg Metformin HCl (Glucophage*) 500 mg PO 0800,1700 [facility] Last Admin: 08/06/18 08:49 Dose: 500 mg Metoprolol Succinate (Toprol Xl Tab*) 100 mg PO DAILY [facility] Last Admin: 08/06/18 08:49 Dose: 100 mg Omeprazole (Prilosec Cap*) 20 mg PO DAILY [facility] Last Admin: 08/06/18 08:49 Dose: 20 mg Vital Signs - 8 hr 08/06/18 08:11 Temperature 98.2 F Pulse Rate 73 Respiratory 16 Rate Blood Pressure 131/58 (mmHg) O2 Sat by Pulse 96 Oximetry Oxygen Devices in Use Now: None Appearance: Cooperative, NAD Eyes: No Scleral Icterus Ears/Nose/Mouth/Throat: Mucous Membranes Moist Neck: NL Appearance and Movements; NL JVP Respiratory: Symmetrical Chest Expansion and Respiratory Effort, Clear to Auscultation Cardiovascular: NL Sounds; No Murmurs; No JVD, RRR Abdominal: NL Sounds; No Tenderness; No Distention Extremities: - - Bilat LE edema with right > left Neurological: - - Alert to self and month. Unsure about place and situation. Result Diagrams: 08/06/18 06:07 08/06/18 06:07 Additional Lab and Data: Laboratory Results - last 24 hr 08/05/18 08/05/18 08/06/18 17:07 20:49 06:07 WBC 7.8 RBC 3.72 L Hgb 10.9 L Hct 32 L MCV 87 MCH 29 MCHC 34 RDW 14 Plt Count 258 MPV 8.0 Neut % (Auto) 69.7 Lymph % (Auto) 19.5 L [place] % (Auto) 6.5 Eos % (Auto) 3.4 Baso % (Auto) 0.9 Absolute Neuts (auto) 5.4 Absolute Lymphs (auto) 1.5 Absolute Monos (auto) 0.5 Absolute Eos (auto) 0.3 Absolute Basos (auto) 0.1 Absolute Nucleated RBC 0 Nucleated RBC % 0 Sodium Potassium Chloride Carbon Dioxide Anion Gap BUN Creatinine Est GFR ( Amer) Est GFR (Non-Af Amer) BUN/Creatinine Ratio Glucose POC Glucose (mg/dL) 236 H 262 H Calcium 08/06/18 08/06/18 08/06/18 06:07 07:35 11:51 WBC RBC Hgb Hct MCV MCH MCHC RDW Plt Count MPV Neut % (Auto) Lymph % (Auto) [place] % (Auto) Eos % (Auto) Baso % (Auto) Absolute Neuts (auto) Absolute Lymphs (auto) Absolute Monos (auto) Absolute Eos (auto) Absolute Basos (auto) Absolute Nucleated RBC Nucleated RBC % Sodium 135 Potassium 4.3 Chloride 104 Carbon Dioxide 23 Anion Gap 8 BUN 40 H Creatinine 1.40 H Est GFR ( Amer) 43.2 Est GFR (Non-Af Amer) 35.7 BUN/Creatinine Ratio 28.6 H Glucose 232 H POC Glucose (mg/dL) 229 H 329 H Calcium 8.5 L Microbiology and Other Data: Microbiology 08/04/18 13:00 Urine Urine Culture - Final No Growth (<1,000 CFU/mL) 08/03/18 15:34 Urine Urine Culture - Final Escherichia Coli 08/03/18 05:55 Blood Venous Aerobic Blood Culture - Preliminary No Growth Day 2 08/03/18 05:55 Blood Venous Anaerobic Blood Culture - Preliminary No Growth Day 2 08/03/18 00:57 Blood Venous Aerobic Blood Culture - Preliminary No Growth Day 2 08/03/18 03:30 Nasal Nasal Screen MRSA (PCR) - Final Mrsa Not Detected EKG Data: . Assess/Plan/Problems-Billing Assessment: 87 yo female PMH ovarian ca (refused recommended surgery 1 year ago), largely immobile between walker and bed, presented to er with sudden onset of sob tachycardia tachypenia hypoxia. Massive PE s/p TPA and heparin gtt. Now Eliquis. - Patient Problems (1) Pulmonary embolism and infarction Comment: - s/p tpa and then heparin drip - Currently Eliquis 10mg BID for total 7 days then 5mg BID. Started on 08/04 more clot burden in legs. - Case could be made for lovenox given likely active ovarian cancer. Discussed this with patient and she prefers oral medication over BID injections. (2) Hypoxia Comment: - Patient successfully weaned from O2. - O2 sat wnl on room air and 91% after ambulating to bathroom on room air. (3) Ovarian ca Comment: - Pt states she was recommended to have surgery at [place] last year but refused. - CA-125 of was 13.5 wnl - Discussed further evaluation of cancer and patient declined. (4) Sepsis Comment: - Resolved, negative blood culture to date. - s/p 1 dose zosyn, no current abx. - Lactic acidosis resolved. - Repeat UCx no growth, initially culture with Ecoli >100K. Asymptomatic. (5) Tachycardia Comment: - Resolved. (6) DNR (do not resuscitate) Comment: - Discussed DNR with patient and she stated understanding and agrees to DNR and DNI Status and Disposition: Medicine inpatient. Lived with at home and would walk very short distances with walker. in hospital in [place]. Discussed hospice versus acute rehab with son and psychiatric social worker. Discharge when medically stable. Attending: Priscilla Verdugo
[2018-08-07 07:08] LABS: ABS Basophils 0.1 10^3/ul (0-0.2); ABS Eosinophils 0.3 10^3/ul (0-0.6); ABS Monocytes 0.6 10^3/ul (0-0.8); ABS Neutrophils 6.8 10^3/ul (1.5-7.7); ABS Nucleated RBC 0 10^3/ul; Eosinophil % 3.3 %; Hematocrit 35 % (35-47); Hemoglobin 11.6 g/dl (12.0-16.0); Lymphocyte % 19.9 %; Mean Corpuscular HGB Conc 33 g/dl (31-36); Mean Corpuscular Hemoglobin 29 pg (27-31); Mean Corpuscular Volume 87 fL (80-97); Mean Platelet Volume 7.6 fL (7.4-10.4); Nucleated Red Blood Cells % 0; Platelet Count 355 10^3/ul (150-450); Red Blood Count 4.01 10^6/ul (4.00-5.40); Red Cell Distribution Width 15 % (10.5-15); White Blood Count 9.8 10^3/ul (3.5-10.8)
[2018-08-07 07:26] LABS: EGFR Non-African American 43.1 (>60)
[2018-08-07] MEDS: Insulin LISPRO* 1 UNITS UNIT SUBCUT SCH ×4 (09:04→21:34)
[2018-08-07] MEDS: Metoprolol Succinate XL TAB* 100 MG PO SCH (09:05)
[2018-08-07] MEDS: Omeprazole CAP* 20 MG PO SCH (09:05)
[2018-08-07] MEDS: amLODIPine TAB* 5 MG PO SCH (09:05)
[2018-08-07] MEDS: Apixaban* 5 MG TAB PO SCH ×2 (09:05→21:33)
[2018-08-07] MEDS: Lisinopril TAB* 5 MG PO SCH (09:05)
--- NOTE | 2018-08-07 10:37 | PN ---
Subjective Date of Service: 08/07/18 Interval History: Per notes last evening patient was confused when she woke in the middle of the night and she also was noted to have a short (6 beat run of VTach). I have ordered Mag level this morning. theater technician mentions today she is in NSR with one run of SVT. Resting in bed on assessment. Patient reports continued left leg pain and some sob with exertion. Denies cp, palpitations, n/v/d. Patient felt unsure about diagnoses and plan, therefore, I sat with patient and answered questions. I also discussed need for rehab placement and patient is agreeable. Reports she would like to consult her before making final decision. 12 point ROS completed and all other negative. Objective Active Medications: Acetaminophen (Tylenol Tab*) 650 mg PO Q4H PRN PRN Reason: FEVER/PAIN Last Admin: 08/04/18 17:44 Dose: 650 mg Amlodipine Besylate (Norvasc Tab*) 5 mg PO DAILY [facility] Last Admin: 08/07/18 09:05 Dose: 5 mg Apixaban (Eliquis*) 10 mg PO BID [facility] Stop: 08/10/18 10:00 Last Admin: 08/07/18 09:05 Dose: 10 mg Insulin Human Lispro (Humalog*) 0 units SUBCUT ACHS [facility]; Protocol Last Admin: 08/07/18 09:04 Dose: 2 units Lisinopril (Prinivil Tab*) 5 mg PO DAILY [facility] Last Admin: 08/07/18 09:05 Dose: 5 mg Metoprolol Succinate (Toprol Xl Tab*) 100 mg PO DAILY [facility] Last Admin: 08/07/18 09:05 Dose: 100 mg Omeprazole (Prilosec Cap*) 20 mg PO DAILY [facility] Last Admin: 08/07/18 09:05 Dose: 20 mg Vital Signs - 8 hr 08/07/18 08/07/18 08/07/18 03:35 07:19 10:21 Temperature 98.1 F 98.2 F Pulse Rate 85 84 Respiratory 18 17 16 Rate Blood Pressure 149/52 155/72 (mmHg) O2 Sat by Pulse 97 98 Oximetry Oxygen Devices in Use Now: None Appearance: Comfortable, NAD Eyes: PERRLA Ears/Nose/Mouth/Throat: Mucous Membranes Moist Neck: NL Appearance and Movements; NL JVP, Trachea Midline Respiratory: Symmetrical Chest Expansion and Respiratory Effort, Clear to Auscultation Cardiovascular: NL Sounds; No Murmurs; No JVD, RRR, - - Bilateral LE edema with R > L Abdominal: NL Sounds; No Tenderness; No Distention Lymphatic: No Cervical Adenopathy Extremities: No Clubbing, Cyanosis Skin: No Rash or Ulcers Neurological: Alert and Oriented x 3 Result Diagrams: 08/07/18 06:46 08/07/18 06:46 Additional Lab and Data: Laboratory Results - last 24 hr 08/06/18 08/06/18 08/06/18 06:07 11:51 17:30 WBC RBC Hgb Hct MCV MCH MCHC RDW Plt Count MPV Neut % (Auto) Lymph % (Auto) [place] % (Auto) Eos % (Auto) Baso % (Auto) Absolute Neuts (auto) Absolute Lymphs (auto) Absolute Monos (auto) Absolute Eos (auto) Absolute Basos (auto) Absolute Nucleated RBC Nucleated RBC % Sodium 135 Potassium 4.3 Chloride 104 Carbon Dioxide 23 Anion Gap 8 BUN 40 H Creatinine 1.40 H Est GFR ( Amer) 43.2 Est GFR (Non-Af Amer) 35.7 BUN/Creatinine Ratio 28.6 H Glucose 232 H POC Glucose (mg/dL) 329 H 251 H Calcium 8.5 L 08/06/18 08/07/18 08/07/18 20:32 06:46 06:46 WBC 9.8 RBC 4.01 Hgb 11.6 L Hct 35 MCV 87 MCH 29 MCHC 33 RDW 15 Plt Count 355 MPV 7.6 Neut % (Auto) 69.2 Lymph % (Auto) 19.9 [place] % (Auto) 6.4 Eos % (Auto) 3.3 Baso % (Auto) 1.2 Absolute Neuts (auto) 6.8 Absolute Lymphs (auto) 2.0 Absolute Monos (auto) 0.6 Absolute Eos (auto) 0.3 Absolute Basos (auto) 0.1 Absolute Nucleated RBC 0 Nucleated RBC % 0 Sodium 138 Potassium 4.3 Chloride 108 Carbon Dioxide 20 L Anion Gap 10 BUN 28 H Creatinine 1.19 H Est GFR ( Amer) 52.2 Est GFR (Non-Af Amer) 43.1 BUN/Creatinine Ratio 23.5 H Glucose 230 H POC Glucose (mg/dL) 264 H Calcium 8.9 08/07/18 07:56 WBC RBC Hgb Hct MCV MCH MCHC RDW Plt Count MPV Neut % (Auto) Lymph % (Auto) [place] % (Auto) Eos % (Auto) Baso % (Auto) Absolute Neuts (auto) Absolute Lymphs (auto) Absolute Monos (auto) Absolute Eos (auto) Absolute Basos (auto) Absolute Nucleated RBC Nucleated RBC % Sodium Potassium Chloride Carbon Dioxide Anion Gap BUN Creatinine Est GFR ( Amer) Est GFR (Non-Af Amer) BUN/Creatinine Ratio Glucose POC Glucose (mg/dL) 235 H Calcium Microbiology and Other Data: Microbiology 08/04/18 13:00 Urine Urine Culture - Final No Growth (<1,000 CFU/mL) 08/03/18 15:34 Urine Urine Culture - Final Escherichia Coli 08/03/18 05:55 Blood Venous Aerobic Blood Culture - Preliminary No Growth Day 2 08/03/18 05:55 Blood Venous Anaerobic Blood Culture - Preliminary No Growth Day 2 08/03/18 00:57 Blood Venous Aerobic Blood Culture - Preliminary No Growth Day 2 08/03/18 03:30 Nasal Nasal Screen MRSA (PCR) - Final Mrsa Not Detected Diagnostic Imaging: . EKG Data: . Assess/Plan/Problems-Billing Assessment: 87 yo female PMH ovarian ca (refused recommended surgery 1 year ago), largely immobile between walker and bed, presented to er with sudden onset of sob tachycardia tachypenia hypoxia. Massive PE s/p TPA and heparin gtt. Now Eliquis. - Patient Problems (1) Pulmonary embolism and infarction Comment: - s/p tpa and then heparin drip - Currently Eliquis 10mg BID for total 7 days then 5mg BID. Started on 08/04 more clot burden in legs. - Case could be made for lovenox given likely active ovarian cancer. Discussed this with patient and she prefers oral medication over BID injections. (2) Hyperglycemia Comment: - BG in 200s. - Med rec confirmed last evening by [employer] rec tech. - Patient previously on Glipizide 2.5 mg daily - Currently on SS and often requiring 2 to 4 units AC. - Hemaglobin A1c 10.1 on 08/03/18 - Metformin started during admission, but has been discontinued due to elevated creatinine. - Consider restarting Glipizide at renal dosing of 2.5 mg daily at time of discharge (3) Edema Comment: - Continues to have bilater LE edema with R > L. - Patient is also hypertensive with SBPs in 150s - It is noted that patient is on Lasix 40 mg PO daily at home ,therefore, I will resume Lasix 20 mg daily and monitor. (4) Arrhythmia Comment: - Per nursing notes patient had 6 beat run of VT last evening. In addition to short run of SVT today. - Mag 1.9. Patient is on the low end of normal so will be supplemented and rechecked tomorrow. (5) Hypoxia Comment: - Patient successfully weaned from O2. - O2 sat wnl on room air and 91% after ambulating to bathroom on room air. (6) Ovarian ca Comment: - Pt states she was recommended to have surgery at [place] last year but refused. - CA-125 of was 13.5 wnl - Discussed further evaluation of cancer and patient declined. - I have requested records for continuity of care (7) Sepsis Comment: - Resolved, negative blood culture to date. - s/p 1 dose zosyn, no current abx. - Lactic acidosis resolved. - Repeat UCx no growth, initially culture with Ecoli >100K. Asymptomatic. (8) DNR (do not resuscitate) Comment: - Discussed DNR with patient and she stated understanding and agrees to DNR and DNI Status and Disposition: Medicine inpatient. Lived with at home and would walk very short distances with walker. in hospital in [place]. Discussed acute rehab then after discharge home with hospice aids. Hopefully patient can be placed in rehab with . Discharge when medically stable. Attending: Priscilla Verdugo
[2018-08-07] MEDS: Acetaminophen TAB* 325 MG PO PRN (11:39)
[2018-08-07] MEDS ORDERED: Magnesium Sulfate 2 GM IV* 2 GM/50 ML BAG IVPB ONE (15:04)
[2018-08-08 07:24] LABS: ABS Basophils 0.1 10^3/ul (0-0.2); ABS Eosinophils 0.3 10^3/ul (0-0.6); ABS Lymphocytes 1.4 10^3/ul (1.0-4.8); ABS Monocytes 0.5 10^3/ul (0-0.8); ABS Neutrophils 4.8 10^3/ul (1.5-7.7); ABS Nucleated RBC 0 10^3/ul; Hematocrit 33 % (35-47); Hemoglobin 10.9 g/dl (12.0-16.0); Lymphocyte % 19.6 %; Mean Corpuscular HGB Conc 34 g/dl (31-36); Mean Corpuscular Hemoglobin 29 pg (27-31); Mean Corpuscular Volume 87 fL (80-97); Mean Platelet Volume 7.3 fL (7.4-10.4); Nucleated Red Blood Cells % 0.1; Platelet Count 342 10^3/ul (150-450); Red Blood Count 3.74 10^6/ul (4.00-5.40); Red Cell Distribution Width 14 % (10.5-15); White Blood Count 7.1 10^3/ul (3.5-10.8)
[2018-08-08 07:39] LABS: EGFR Non-African American 50.4 (>60)
[2018-08-08] MEDS: Apixaban* 5 MG TAB PO SCH (08:25)
[2018-08-08] MEDS: Acetaminophen TAB* 325 MG PO PRN (08:25)
[2018-08-08] MEDS: Lisinopril TAB* 5 MG PO SCH (08:25)
[2018-08-08] MEDS: Insulin LISPRO* 1 UNITS UNIT SUBCUT SCH ×2 (08:26→12:43)
[2018-08-08] MEDS: Metoprolol Succinate XL TAB* 100 MG PO SCH (08:26)
[2018-08-08] MEDS: Omeprazole CAP* 20 MG PO SCH (08:26)
[2018-08-08] MEDS: amLODIPine TAB* 5 MG PO SCH (08:26)
[2018-08-08] MEDS ORDERED: Furosemide TAB* 40 MG PO SCH (09:00)
--- NOTE | 2018-08-08 12:35 | DS ---
AMENDED REPORT NOW INCLUDES DESIGNATED COSIGNER CC: Dr. Mccracken * DISCHARGE SUMMARY: DATE OF ADMISSION: 08/03/18 DATE OF DISCHARGE: 08/08/18 PRIMARY CARE PROVIDER: Dr. Mccracken ATTENDING PHYSICIAN: Dr. Gabrielle Olmstead * (dictated by Kristian Arnold NP) PRIMARY DIAGNOSES: 1. Pulmonary embolism. 2. Hypoxia. 3. Ovarian/uterine cancer. SECONDARY DIAGNOSIS: 1. Type 2 diabetes. 2. GERD 3. HTN 4. HLD 5. Obesity 6. Osteoarthritis of knees 7. Tubular Adenoma of Colon (2006) CONSULTATIONS WHILE IN THE HOSPITAL: Dr. Osito Coreas, livestock dealer; Dr. Emilia Henning, Cardiology. PROCEDURES WHILE IN THE HOSPITAL: There were no procedures completed while patient was in the hospital. STUDIES WHILE IN THE HOSPITAL: CTA abdomen/chest/pelvis: Impression: 1. Large volume pulmonary emboli burden with associated right heart strain. 2. Posterior right lower lobe pulmonary nodule consistent with scarring from prior infectious process. 3. Unchanged pancreatic tail lesion with imaging characteristics most consistent with a serous cystadenoma, suggests followup pancreas imaging every 2 years. 4. Stable small renal lesions, likely simple cysts. No followup indicated. 5. Distended endometrial canal, unusual in postmenopausal patient. Consider followup with pelvic ultrasound. Transthoracic echo: Impression: There is normal left ventricular systolic function. There is estimated ejection fraction of 55% to 60%. Abnormal left ventricular diastolic filling is observed consistent with impaired relaxation. There is evidence of aortic sclerosis without stenosis. There is trace of aortic regurgitation. There is trace mitral valve regurgitation. There is moderate tricuspid valve regurgitation. There is ventricular systolic pressure estimated at 51 mmHg. There is evidence of moderate pulmonary hypertension. There is no significant pericardial effusion. Venous Doppler study: Impression: Nonocclusive DVT extending from the right common femoral vein to posterior tibial veins on the right. Some minimal peripheral flow is noted. Occlusive deep vein thrombosis is extending from the left common femoral vein to the peroneal veins. DISCHARGE MEDICATIONS: New home medication: Apixaban 10 mg p.o. b.i.d. for a total of 7 days, start date 08/04/18 and stop date 08/10/18. Then apixaban 5 mg p.o. b.i.d. starting on 08/11/18 and continuing until followup with Hematology/Oncology. Continued home medications: 1. Nexium 40 mg p.o. daily. 2. Glipizide 2.5 mg p.o. daily. 3. Amlodipine 5 mg p.o. daily. 4. Metoprolol succinate XL tab 100 mg p.o. daily. 5. Lisinopril 5 mg p.o. daily. 6. Lasix 40 mg p.o. daily. 7. Abreva as needed Discontinued home medications: 1. Aspirin 81 mg p.o. daily. Patient does not have hx of stroke or CAD, therefore, dual therapy with Eliquis and ASA not indicated. HISTORY OF PRESENT ILLNESS/HOSPITAL COURSE: Mrs. Coffey is an 87-year-old female with past medical history of ovarian/uterine cancer diagnosed 2 to 4 years ago, type 2 diabetes, limited mobility, HTN, obesity; who presented to the emergency room with her son due to sudden onset of shortness of breath around 6 p.m. on 08/02/18. The patient was found to be hypoxic with O2 sat in the 70s, tachycardic and tachypneic. She was found to have a massive PE with right heart strain. She got tPA and was transferred to the ICU on a heparin drip. When patient was stabilized, she was transferred to telemetry and started on apixaban. The patient initially was requiring 5 L nasal cannula to maintain saturation, but was weaned successfully and is now on room air. She continues to have some shortness of breath with exertion, but ambulating O2 sat was 91% on room air. We believe the pulmonary embolisms are provoked due to patient's history of ovarian/uterine cancer. The patient and son report that she was diagnosed with ovarian cancer and she was recommended to have surgery in [place] last year, but refused. A CA-125 was drawn in the emergency room and was within normal limits at 13.5. The CT of her abdomen did not reveal any significant abnormalities on ovaries, but did reveal changes in endometrium as mentioned above. It should also be noted that in patient's chart, there is a pathology report from 08/23/16of uterine/endometrium biopsy. 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 I suspect the patient was diagnosed with uterine cancer and referred to [place]. bank credit card collection clerk contacted [facility] to obtain records and there are no records as patient canceled her appointments. Either way, I discussed with patient whether she would like to investigate this diagnosis further and she declined. In addition, the unchanged pancreatic lesion noted on CT imaging which was noted to be consistent with serous cystadenoma were discussed with patient. Discussed need for followup imaging every 2 years. Also, discussed referral to specialist due to findings and patient refused. It should also be noted that patient's is currently hospitalized in [place] for aortic valve repair and hip fracture. The patient does 2 sons that are involved in her care. The patient is stable for discharge to [facility]. I have called report to Juany Campos NP. Vital signs are as follows: Temp 97.6, HR 81, RR 18, 96% on room air, BP 175/ 70. Most recent labs drawn today 08/08/18, WBC 7.1, hemoglobin 10.9, hematocrit 33, platelets 342. Sodium 139, potassium 4.2, chloride 110, carbon dioxide 21, anion gap 8, BUN 19, creatinine 1.04, glucose 216. REVIEW OF SYSTEMS: 12-point review of systems reviewed with patient and all negative. PHYSICAL EXAM: Appearance: Comfortable, no acute distress. Eyes: PERRLA. Ears: Nose, throat, mouth: Mucous membranes moist. No lesions or erythema in oral cavity. The patient is noted to have cold sores on upper lip. Neck: Normal appearance and movements. Respiratory: Symmetrical chest expansion and respiratory effort, clear to auscultation. Cardiovascular: Normal S1, S2 present, no murmurs, rubs, or gallops. No JVD. Bilateral lower extremity edema with right greater than left. Abdomen: Bowel sounds positive x4, no tenderness, no dissection. Lymphatic: No cervical lymphadenopathy. Extremities: No clubbing, cyanosis. Edema as previously mentioned. No rashes or ulcers. Neurological: Alert and oriented x3. Hematology: No overt signs of bleeding. FOLLOWUP: 1. Pulmonary embolisms: The patient should continue apixaban as prescribed above. 2. Hypoxia: The patient is currently within normal limits on room air. Her O2 saturation should be monitored routinely. 3. Ovarian/uterine CA: I spoke to patient about this at length and she is refusing further evaluation or treatment. 4. Arrhythmia: The patient was tachycardic on presentation to the emergency room, but has since resolved. The patient was on telemetry and noted to have a 6-beat run of VT, which was nonsustained. Mag was noted to be 1.9. Mag was replaced and she has not had any more runs of VT. 5. Diabetes: The patient has been on sliding scale insulin while here often requiring 2 to 4 units of insulin with meals. The patient should resume glipizide at renal dosing of 2.5 mg p.o. daily. The patient should have routine blood glucose checks in the a.m. and also when symptomatic p.r.n. 6. Hypertension. The patient should continue amlodipine 5 mg p.o. daily in addition to metoprolol 100 mg p.o. daily, and furosemide 40 mg p.o. daily. 7. Cold Sores: Patient should use Abreva as needed as she reports she uses this at home with success. 7. The patient should follow up with her primary care provider, Dr. Mccracken in the next 1 to 2 weeks. 8. The patient should follow up with Hematology/Oncology regarding treatment plan. 9. Code status: The patient is a DNR. This is a summarized report of a complex medical history and hospital stay. For further details, please see the entire medical record. TIME SPENT: Approximately 45 minutes was spent on this discharge, greater than half the time was spent [id number] with the patient discussing discharge plans and instructions. KRISTIAN ARNOLD, ONEYDA [id number]/[facility] #: [id number] RACHEL
[2018-08-08 14:53] VITALS: BP 150/71
== END 2018-08-08 15:15 | DRG 176 ==
LOC: ED 00:09 → ICU 02:00 → MED 08-04 13:04
PROVIDERS: ADMIT Internal Medicine; ATTEND Internal Medicine
DX: I26.92 Saddle embolus of pulmonary artery without acute cor pulmonale (principal); C56.9 Malignant neoplasm of unspecified ovary; I47.1 Supraventricular tachycardia; I82.441 Acute embolism and thrombosis of right tibial vein; I82.413 Acute embolism and thrombosis of femoral vein, bilateral; I82.492 Acute embolism and thrombosis of other specified deep vein of left lower extremity; I11.0 Hypertensive heart disease with heart failure; I50.9 Heart failure, unspecified; B96.20 Unspecified Escherichia coli [E. coli] as the cause of diseases classified elsewhere; R82.71 Bacteriuria; E78.5 Hyperlipidemia, unspecified; C55 Malignant neoplasm of uterus, part unspecified; K21.9 Gastro-esophageal reflux disease without esophagitis; E11.65 Type 2 diabetes mellitus with hyperglycemia; M17.0 Bilateral primary osteoarthritis of knee; K13.79 Other lesions of oral mucosa; D12.6 Benign neoplasm of colon, unspecified; R91.1 Solitary pulmonary nodule; D13.6 Benign neoplasm of pancreas; N28.1 Cyst of kidney, acquired; N85.8 Other specified noninflammatory disorders of uterus; I08.3 Combined rheumatic disorders of mitral, aortic and tricuspid valves; I27.20 Pulmonary hypertension, unspecified; Z79.01 Long term (current) use of anticoagulants; Z79.899 Other long term (current) drug therapy; Z79.84 Long term (current) use of oral hypoglycemic drugs; Z88.0 Allergy status to penicillin; Z88.2 Allergy status to sulfonamides; Z68.38 Body mass index [BMI] 38.0-38.9, adult; Z82.49 Family history of ischemic heart disease and other diseases of the circulatory system; Z83.3 Family history of diabetes mellitus; Z78.0 Asymptomatic menopausal state; Z66 Do not resuscitate; Z74.01 Bed confinement status; Z72.89 Other problems related to lifestyle
CPT/HCPCS: 36415; 71045; 71275; 74177; 80048; 80053; 81003; 81015; 82565; 82803; 82947; 83036; 83605; 83735; 83880; 84484; 84520; 85025; 85610; 85730; 86140; 86304; 86850; 86900; 86901; 87040; 87077; 87086; 87186; 87641; 93005; 93306; 93970; 96374; 99285; A9270-GY; G8978-GP-CK; G8979-GP-CI; J1644; J1815; J2270; J2405; J2543; J2997; J3475; Q9967

== ENCOUNTER 2022-08-03 10:55 | Inpatient (IN) ==
[2022-08-03 13:51] LABS: ABS Lymphocytes 1.2 10^3/ul (1.0-4.8); ABS Monocytes 0.8 10^3/ul (0-0.8); ABS Neutrophils 12.6 10^3/ul (1.5-7.7); Eosinophil % 0.3 %; Hematocrit 41 % (35-47); Hemoglobin 13.2 g/dL (12.0-16.0); Lymphocyte % 7.9 %; Mean Corpuscular HGB Conc 32 g/dL (31-36); Mean Corpuscular Hemoglobin 27 pg (27-31); Mean Corpuscular Volume 85 fL (80-97); Mean Platelet Volume 7.5 fL (7.4-10.4); Platelet Count 522 10^3/uL (150-450); Red Blood Count 4.82 10^6 /uL (3.70-4.87); Red Cell Distribution Width 15 % (10-15); White Blood Count 14.7 10^3/uL (3.5-10.8)
[2022-08-03 14:48] LABS: Albumin 3.6 g/dL (3.2-5.2); Albumin/Globulin Ratio 1.1 (1-3); Calcium 9.2 mg/dL (8.6-10.3); Globulin 3.4 g/dL (2-4); Potassium 4.7 mmol/L (3.5-5.0); Total Bilirubin 1.4 mg/dL (0.2-1.0); eGFR CKD-EPI 19.1 (>60)
[2022-08-03] MEDS ORDERED: Lactated Ringers 1000 ml BAG 1,000 ML IV ONE (14:52)
[2022-08-03 15:18] LABS: High Sensitivity Troponin 1 Hr 19 pg/mL (<15)
[2022-08-03] MEDS ORDERED: NS 0.9% 1000 ml BAG 1,000 ML IV SCH (18:45)
[2022-08-03] MEDS ORDERED: Dextrose 50% Syringe 50 ml 25 GM/50 ML SYRINGE IV PUSH PRN (18:56)
[2022-08-03 19:24] LABS: C Reactive Protein 120.01 mg/L (<8.01)
[2022-08-03] MEDS: ceFAZolin 1 GM ADVAN 1 GM in NS 0.9% 50 ML 50 ML IVPB SCH (20:54)
[2022-08-03] MEDS: Nystatin TOP POWDER 15 GM BTL TOPICAL SCH (21:45)
[2022-08-04 00:58] LABS: Urine Appearance Turbid; Urine Bilirubin Negative (Negative); Urine Blood 1+ (Negative); Urine Color Amber; Urine Glucose Negative (Negative); Urine Ketones Negative (Negative); Urine Nitrite Negative (Negative); Urine Protein 1+(30 mg/dL) (Negative); Urine Specific Gravity 1.014 (1.002-1.030); Urine Urobilinogen Negative (Negative)
[2022-08-04 01:03] LABS: Urine Bacteria 3+ (Absent); Urine Red Blood Cell Trace(0-2/hpf) (Absent); Urine White Blood Cell 3+(>20/hpf) (Absent)
[2022-08-04] MEDS: ceFAZolin 1 GM ADVAN 1 GM in NS 0.9% 50 ML 50 ML IVPB SCH ×3 (03:46→19:36)
[2022-08-04] MEDS: Nystatin TOP POWDER 15 GM BTL TOPICAL SCH ×3 (09:59→19:36)
[2022-08-04 10:31] LABS: ABS Basophils 0.1 10^3/ul (0-0.2); ABS Eosinophils 0.2 10^3/ul (0-0.6); ABS Lymphocytes 1.3 10^3/ul (1.0-4.8); ABS Monocytes 0.5 10^3/ul (0-0.8); ABS Neutrophils 7.6 10^3/ul (1.5-7.7); Eosinophil % 1.9 %; Hematocrit 36 % (35-47); Hemoglobin 11.8 g/dL (12.0-16.0); Lymphocyte % 13.4 %; Mean Corpuscular HGB Conc 32 g/dL (31-36); Mean Corpuscular Hemoglobin 28 pg (27-31); Mean Corpuscular Volume 85 fL (80-97); Mean Platelet Volume 7.3 fL (7.4-10.4); Nucleated Red Blood Cells % 0.1; Platelet Count 436 10^3/uL (150-450); Red Blood Count 4.29 10^6 /uL (3.70-4.87); Red Cell Distribution Width 15 % (10-15); White Blood Count 9.6 10^3/uL (3.5-10.8)
[2022-08-04 10:57] LABS: Calcium 8.6 mg/dL (8.6-10.3); eGFR CKD-EPI 29.5 (>60)
[2022-08-04 11:03] LABS: CKMB ng/mL 11.1 ng/mL (0.6-6.3)
[2022-08-05] MEDS: ceFAZolin 1 GM ADVAN 1 GM in NS 0.9% 50 ML 50 ML IVPB SCH ×3 (03:35→21:26)
[2022-08-05 05:47] LABS: Calcium 8.1 mg/dL (8.6-10.3); Potassium 3.8 mmol/L (3.5-5.0); eGFR CKD-EPI 36.3 (>60)
[2022-08-05] MEDS: Nystatin TOP POWDER 15 GM BTL TOPICAL SCH ×3 (08:03→21:24)
[2022-08-05] MEDS: Heparin 5000 UNITS/ML 1 mL VIAL SUBCUT SCH ×2 (14:06→21:26)
[2022-08-06] MEDS: Heparin 5000 UNITS/ML 1 mL VIAL SUBCUT SCH ×3 (05:07→20:43)
[2022-08-06] MEDS: ceFAZolin 1 GM ADVAN 1 GM in NS 0.9% 50 ML 50 ML IVPB SCH ×3 (05:07→19:46)
[2022-08-06 06:50] LABS: Hematocrit 35 % (35-47); Hemoglobin 11.1 g/dL (12.0-16.0); Mean Corpuscular HGB Conc 32 g/dL (31-36); Mean Corpuscular Hemoglobin 27 pg (27-31); Mean Corpuscular Volume 85 fL (80-97); Mean Platelet Volume 7.3 fL (7.4-10.4); Platelet Count 400 10^3/uL (150-450); Red Blood Count 4.06 10^6 /uL (3.70-4.87); Red Cell Distribution Width 15 % (10-15); White Blood Count 6.6 10^3/uL (3.5-10.8)
[2022-08-06 07:15] LABS: Magnesium 1.6 mg/dL (1.9-2.7); Potassium 4.3 mmol/L (3.5-5.0); eGFR CKD-EPI 43.7 (>60)
[2022-08-06] MEDS ORDERED: Magnesium Sulfate IV 3 GM in NS 0.9% 100 ml BAG 100 ML IVPB ONE (10:00)
[2022-08-06] MEDS: Nystatin TOP POWDER 15 GM BTL TOPICAL SCH ×3 (10:34→20:43)
[2022-08-06] MEDS ORDERED: Magnesium Hydroxide LIQ 30 ML UDC PO PRN (10:55)
[2022-08-06] MEDS ORDERED: Polyethylene Glycol 3350 17 GM PACKET PO PRN (10:55)
[2022-08-06] MEDS ORDERED: Senna TAB 8.6 mg TAB PO PRN (10:55)
[2022-08-06 11:58] LABS: ABS Basophils 0.1 10^3/ul (0-0.2); ABS Eosinophils 0.2 10^3/ul (0-0.6); ABS Lymphocytes 1.5 10^3/ul (1.0-4.8); ABS Monocytes 0.4 10^3/ul (0-0.8); ABS Neutrophils 4.4 10^3/ul (1.5-7.7); Lymphocyte % 22.2 %
[2022-08-06] MEDS ORDERED: Sodium Phosphate ADULT ENEMA 133 ML BTL PR PRN (12:15)
[2022-08-06] MEDS: Magnesium Hydroxide LIQ 30 ML UDC PO SCH (20:43)
[2022-08-07] MEDS: ceFAZolin 1 GM ADVAN 1 GM in NS 0.9% 50 ML 50 ML IVPB SCH ×3 (04:04→18:32)
[2022-08-07] MEDS: Heparin 5000 UNITS/ML 1 mL VIAL SUBCUT SCH ×3 (06:07→21:33)
[2022-08-07 06:55] LABS: Hematocrit 36 % (35-47); Hemoglobin 11.8 g/dL (12.0-16.0); Mean Corpuscular HGB Conc 33 g/dL (31-36); Mean Corpuscular Hemoglobin 28 pg (27-31); Mean Corpuscular Volume 84 fL (80-97); Mean Platelet Volume 6.9 fL (7.4-10.4); Platelet Count 391 10^3/uL (150-450); Red Blood Count 4.27 10^6 /uL (3.70-4.87); Red Cell Distribution Width 15 % (10-15); White Blood Count 9.1 10^3/uL (3.5-10.8)
[2022-08-07 06:56] LABS: ABS Basophils 0.1 10^3/ul (0-0.2); ABS Eosinophils 0.2 10^3/ul (0-0.6); ABS Monocytes 0.5 10^3/ul (0-0.8); ABS Neutrophils 7.3 10^3/ul (1.5-7.7); Eosinophil % 2.5 %; Lymphocyte % 10.7 %
[2022-08-07 07:43] LABS: Magnesium 2.1 mg/dL (1.9-2.7); Potassium 4.6 mmol/L (3.5-5.0); eGFR CKD-EPI 55.9 (>60)
[2022-08-07] MEDS: Magnesium Hydroxide LIQ 30 ML UDC PO SCH ×2 (08:05→21:33)
[2022-08-07] MEDS: Nystatin TOP POWDER 15 GM BTL TOPICAL SCH ×3 (08:05→21:29)
[2022-08-07] MEDS ORDERED: Furosemide 40 mg/4 ml IV VIAL IV SLOW PU ONE (10:37)
[2022-08-08] MEDS: ceFAZolin 1 GM ADVAN 1 GM in NS 0.9% 50 ML 50 ML IVPB SCH ×3 (03:38→21:05)
[2022-08-08] MEDS: Heparin 5000 UNITS/ML 1 mL VIAL SUBCUT SCH ×3 (05:18→21:07)
[2022-08-08 06:48] LABS: Calcium 7.9 mg/dL (8.6-10.3); Magnesium 1.9 mg/dL (1.9-2.7); Potassium 4.5 mmol/L (3.5-5.0); eGFR CKD-EPI 47.5 (>60)
[2022-08-08 07:09] LABS: ABS Basophils 0.1 10^3/ul (0-0.2); ABS Eosinophils 0.2 10^3/ul (0-0.6); ABS Lymphocytes 1.2 10^3/ul (1.0-4.8); ABS Monocytes 0.7 10^3/ul (0-0.8); ABS Neutrophils 7.9 10^3/ul (1.5-7.7); Eosinophil % 2.4 %; Hematocrit 35 % (35-47); Hemoglobin 11.5 g/dL (12.0-16.0); Lymphocyte % 12.2 %; Mean Corpuscular HGB Conc 33 g/dL (31-36); Mean Corpuscular Hemoglobin 28 pg (27-31); Mean Corpuscular Volume 84 fL (80-97); Mean Platelet Volume 7.3 fL (7.4-10.4); Platelet Count 393 10^3/uL (150-450); Red Blood Count 4.15 10^6 /uL (3.70-4.87); Red Cell Distribution Width 15 % (10-15); White Blood Count 10.1 10^3/uL (3.5-10.8)
[2022-08-08] MEDS: Magnesium Hydroxide LIQ 30 ML UDC PO SCH ×2 (09:30→21:11)
[2022-08-08] MEDS: Nystatin TOP POWDER 15 GM BTL TOPICAL SCH ×3 (09:31→21:07)
[2022-08-09] MEDS: ceFAZolin 1 GM ADVAN 1 GM in NS 0.9% 50 ML 50 ML IVPB SCH ×3 (03:00→20:00)
[2022-08-09] MEDS: Heparin 5000 UNITS/ML 1 mL VIAL SUBCUT SCH ×3 (05:44→22:35)
[2022-08-09] MEDS: Nystatin TOP POWDER 15 GM BTL TOPICAL SCH ×3 (08:50→20:04)
[2022-08-09] MEDS: Magnesium Hydroxide LIQ 30 ML UDC PO SCH ×2 (09:04→20:04)
[2022-08-10] MEDS: ceFAZolin 1 GM ADVAN 1 GM in NS 0.9% 50 ML 50 ML IVPB SCH ×2 (03:13→11:47)
[2022-08-10] MEDS: Heparin 5000 UNITS/ML 1 mL VIAL SUBCUT SCH ×3 (05:06→21:44)
[2022-08-10] MEDS: Nystatin TOP POWDER 15 GM BTL TOPICAL SCH ×3 (10:13→20:26)
[2022-08-11] MEDS: Heparin 5000 UNITS/ML 1 mL VIAL SUBCUT SCH ×2 (04:59→13:36)
[2022-08-11 11:32] VITALS: BP 143/98
[2022-08-11] MEDS: Nystatin TOP POWDER 15 GM BTL TOPICAL SCH (11:55)
[2022-08-11 12:14] LABS: Rapid COVID-19 Molecular Undetected (Undetected)
[2022-08-11 12:28] LABS: Rapid COVID-19 Molecular Undetected (Undetected)
== END 2022-08-11 14:40 | DRG 683 ==
LOC: EDHOLD 10:55 → ED 10:55 → MED 22:14 → SUATTDRO 08-05 11:15
PROVIDERS: ADMIT Internal Medicine; ATTEND Internal Medicine